=== PATIENT | female | born 1965 | race Caucasian/White ===

== ENCOUNTER 2021-01-06 17:13 | Emergency (ER) | payer OTHER ==
[~2021-01-06 17:13] MED LIST: DOXYCYCLINE HY100 M2 PO; PREDNISONE 50 M50 MG PO; PREDNISONE10 MG PO; ROBITUSSIN AC480 ML PO; TESSALON PERLE100 MG PO; VENTOLIN HFA 66.7 GM INH; ZITHROMAX250 MG PO
[2021-01-06 18:27] LABS: HEMOGLOBIN 13.4 gm/dl (12.3-15.3); RED BLOOD COUNT 3.73 M/UL (4.00-5.10); WHITE BLOOD COUNT 6.1 K/UL (4.5-11.0)
[2021-01-06 18:57] LABS: BUN/CREATININE RATIO 10 (0-10)
[2021-01-06] MEDS ORDERED: PROTONIX20 MG PO (20:15)
[2021-01-06] MEDS ORDERED: CARAFATE1 GM PO (20:15)
== END 2021-01-06 20:37 | disposition home or self-care (01) ==
LOC: ER1 17:13
PROVIDERS: Emergency Medicine
DX: R10.12 Left upper quadrant pain (principal); J45.909 Unspecified asthma, uncomplicated; F17.200 Nicotine dependence, unspecified, uncomplicated; Z88.5 Allergy status to narcotic agent; Z90.710 Acquired absence of both cervix and uterus
CPT/HCPCS: 80053; 81001; 83690; 85025; 99284; Q9967